=== PATIENT | female | born 1985 | race Caucasian/White ===

== ENCOUNTER 2016-10-01 03:45 | Inpatient (IN) | payer OTHER ==
[~2016-10-01] VITALS: Ht 175.3 cm; Wt 65.9 kg
[2016-10-01] MEDS ORDERED: LIDOCAINE 1% VIAL ONE ×2 (03:54→05:23)
[2016-10-01] MEDS ORDERED: MORPHINE SULFATE IV STA (04:34)
[2016-10-01] MEDS ORDERED: VANCOMYCIN 1,000 MG in NS 100ML 100 ML IV STA (04:34)
[2016-10-01] MEDS ORDERED: ZOSYN 3.375 GRAM VIAL 3.375 GM in NS 100ML 100 ML IV STA (04:34)
[2016-10-01] MEDS ORDERED: NS IV STA (04:34)
--- NOTE | 2016-10-01 04:48 | ER.PDOC ---
General Chief Complaint: Skin Rash/Abscess Stated Complaint: INSECT BITE/ABSCESS Time seen by MD: 02:38 Source: patient Exam Limitations: no limitations History of Present Illness Initial Comments Abscess left upper extremity for 3 days Severity: moderate Location: LUE Quality: painful Exposure: other (insect bite) Prior symptoms/Treatment: Similar symptoms previous, Treated by Doctor Allergies: Coded Allergies: ibuprofen (Verified Allergy, Unknown, 10/01/16) ketorolac (Verified Allergy, Unknown, 10/01/16) Past Medical History Medical History: no pertinent history Surgical History: , tubal Social History Smoking: less than 1 pack/day Alcohol Use: none Drug Use: none Constitutional: no symptoms reported, chills, fever Respiratory: no symptoms reported Cardiovascular: no symptoms reported Gastrointestinal: no symptoms reported Skin: see HPI All Other Systems: Reviewed and Negative Physical Exam General Appearance: alert, no distress Skin: abscess, tender indurated area, pointing, fluctuant, with erythema Location: LLE (forearm and elbow) With: warmth, tenderness, swelling, inflammation EENT: eyes nml inspection, lips/gums nml, pharynx nml Neck: trachea midline, no swelling Respiratory: no resp. distress, breath sounds nml CVS: reg. rate & rhythm, heart sounds nml Abdomen: non-tender, no organomegaly NEURO/PSYCH: oriented x 3, CN's nml as tested, motor nml, sensation nml, mood/ affect nml Incision and Drainage Incision and Drainage : Site: left forearm Blade Size: 11 I & D Procedure: betadine prep, gauze wick placed, irrigated cavity w/saline , culture/gram stain Central Line Central Line : Central Line Lumen: double Central Line Procedure: betadine prep, sterile drapes applied, sterile dressing applied Central Line Postion: internal jugular (R) Anesthesia: Lidocaine Complications: none Central Line Post Position: good blood return, position confirmed w/ CXR EKG/XRAY/CT/US XRAY: chest (Nothing acute, central line in good position) Departure Time of Disposition: 04:29 Disposition: 09 ADMITTED INPATIENT Impression: Primary Impression: Abscess Additional Impression: Cellulitis Qualified Codes: L03.114 - Cellulitis of left upper limb Condition: Stable Referrals: PCP,UNKNOWN (PCP) PRIMARY CARE PROVIDER Comments Admitted to Dr. Jacqueline HEREDIA,STAR Lee MD October 01, 2016 04:48
--- NOTE | 2016-10-01 05:01 | NUR ---
iv attempt iv attempted x 4 by this RN unsuccessful , Dr Torres attemped EJ x 2 unsuccessful
--- NOTE | 2016-10-01 05:30 | NUR ---
central line right subclavian central started by Dr Power , consent signed captain room service
[2016-10-01 05:35] LABS: BASOPHIL % 0.4 % (0.0-0.2); EOSINOPHIL # 0.3 10^3/uL (0.0-0.2); EOSINOPHIL % 2.6 % (0.0-5.0); HEMATOCRIT 32.4 % (36.0-46.0); HEMOGLOBIN 10.8 g/dL (12.0-15.0); LYMPHOCYTES # 2.5 10^3/uL (1.0-4.8); LYMPHOCYTES % 23.1 % (24.0-44.0); MEAN CELL HGB 29.7 pg (26-34); MEAN CELL HGB CONCENTRATION 33.3 g/dL (33-37); MEAN PLATELET VOLUME 9.4 fL (7.8-11.0); MONOCYTES % 8.8 % (5.0-12.0); NEUTROPHIL # 7.1 10^3/uL (1.8-7.7); NEUTROPHILS % 64.9 % (41.0-85.0); RED CELL DISTRIBUTION WIDTH 13.4 % (11.5-14.5); WHITE BLOOD CELL 10.9 10^3/uL (4.5-11.0)
--- NOTE | 2016-10-01 05:45 | NUR ---
blood culture drawn
[2016-10-01 05:51] LABS: CALCIUM 8.8 mg/dL (8.4-10.5); CARBON DIOXIDE 24.3 mmol/L (20.0-32)
[2016-10-01] MEDS ORDERED: MORPHINE SULFATE ONE ×2 (06:02→10:01)
--- NOTE | 2016-10-01 06:04 | DIREP ---
PROCEDURE:CHEST X-RAY, AP PORTABLE COMPARISON:None. INDICATIONS:POST CENTRAL LINE FINDINGS: LUNGS/PLEURA:No significant pulmonary parenchymal abnormalities. No pneumothorax is identified. VASCULATURE:Normal. Unremarkable pulmonary vasculature. CARDIAC:Normal. No cardiac silhouette abnormality or cardiomegaly. MEDIASTINUM:Normal. No visible mass or adenopathy. BONES:Normal. No fracture or visible bony lesion. OTHER:A central venous catheter is in place from a right subclavian approach, with its tip in the SVC. CONCLUSION: No cardiopulmonary abnormality is identified. Dictated by: Richar Thomas MD on 10/01/2016 at 06:02 AM
--- NOTE | 2016-10-01 06:08 | NUR ---
Ct patient to CT via wheelchair
--- NOTE | 2016-10-01 06:13 | NUR ---
home meds patient takes no home medication
[2016-10-01] MEDS ORDERED: NS 1000ML 1,000 ML ONE (06:22)
[2016-10-01] MEDS ORDERED: VANCOMYCIN HCL 1 GM ONE (06:23)
[2016-10-01] MEDS ORDERED: NS 250ML 250 ML IV ONE (06:23)
[2016-10-01] MEDS ORDERED: BENADRYL IV STA ×2 (06:27→06:52)
--- NOTE | 2016-10-01 06:28 | NUR ---
JOYCE DOCTOR GIOVANNA ON THE PHONE WITH DOCTOR COOK, WILL ADMIT TO MED SURG.
[2016-10-01] MEDS ORDERED: NS IV SCH (06:30)
[2016-10-01] MEDS ORDERED: VANCOMYCIN 1,000 MG in NS 100ML 100 ML IV SCH (06:30)
[2016-10-01] MEDS: ZOSYN 3.375 GRAM VIAL 3.375 GM in NS 100ML 100 ML IV SCH ×3 (06:30→19:07)
[2016-10-01] MEDS ORDERED: BENADRYL ONE (06:34)
--- NOTE | 2016-10-01 06:34 | PRM.ACF1 ---
Date and Time Date and Time Time: :33 Admission Criteria Forms CELLULITIS Clinical Indications for Admission to Inpatient Care (Place 'X' for any and all applicable criteria): Admission is indicated for ANY ONE of the following(1)(2)(3)(4)(5): [ x]I. Limb-threatening infection [ ]II. High-risk comorbid condition as indicated by ANY ONE of the following: [ ]a) Uncontrolled diabetes (eg, HbA1c greater than 10% (0.1)) [ ]b) Cirrhosis [ ]c) Neutropenia [ ]d) Asplenia [ ]e) Immunosuppression [ ]f) Symptomatic heart failure [ ]III. Failure of outpatient therapy as indicated by ALL of the following: [ ]a) Progression or no improvement after adequate trial (minimum of 48 hours, with longer period for stable lower extremity infection) [ ]b) Adequate antibiotic regimen as indicated by use of ANY ONE of the following: [ ]i) First-generation cephalosporin (e.g., cephalexin) [ ]ii) Antistaphylococcal penicillin (e.g., dicloxacillin) [ ]iii) Penicillin-allergic patient regimen (clindamycin, extended-spectrum fluoroquinolone, or doxycycline) [ ]iv) Resistant organism (eg, methicillin-resistant Staphylococcus aureus) regimen (6) [ ]c) Outpatient intravenous therapy regimen is not appropriate due to ANY ONE of the following. (7)(8)(9)(10): [ ]i) It was tried and was not successful (eg, progression of infection). [ ]ii) It is not available or cannot be arranged in a clinically appropriate time frame (e.g., the next day). [ ]iii) Clinical presentation (eg, acuity of infection, rapidity of progression, confirmed or suspected bacteremia) is judged to require ALL of the following: [ ]1) Immediate initiation of intravenous therapy ( eg, cannot wait for next day) [ ]2) Intensity of patient monitoring and observation (eg, vital sign measurement, checks for infection progression) that cannot be provided at other than inpatient level of care [ ]IV. Mental status changes [ ]V. Bacteremia [ ]. Hemodynamic instability [ ]VII. Suspected necrotizing soft tissue infection (e.g., gas in tissue)(11)( 12) [ ]VIII. Orbital infection (13)(14) [ ]IX. Associated surgical procedure (e.g., abscess drainage, debridement) not amenable to outpatient, emergency department, or observation care [ ]X. Cutaneous gangrene [ ]XI. High fever (temperature greater than 39.5 degrees C (103.1 degrees F) (oral)) not responsive to outpatient, emergency department, or observation care therapy [ ]XIII. Inpatient admission required rather than observation care (Also use Cellulitis: Observation Care as appropriate) because of ANY ONE of the following : [ ]a) Periorbital or perineal infection that is severe or worsening [ ]b) Severe pain requiring acute inpatient management [ ]c) IV fluid to replace significant ongoing (e.g., for over 24 hours) losses (greater than 3L/m2 per day) [ ]d) Compartment syndrome monitoring (17) [ ]e) Strict or protective (eg, laminar flow) isolation [ ]f) Urgent debridement or skin grafting [ ]g) Bone or joint debridement [ ]h) Immediate inpatient surgery [ ]i) Other condition, treatment or monitoring requiring inpatient admission Extended stay beyond goal length of stay may be needed for (1)(18): [ ]a) Necrotizing soft tissue infection or fasciitis [ ]b) Gram-negative infection [ ]c) Methicillin-resistant Staphylococcal aureus (MRSA) infection [ ]d) Peripheral venous insufficiency with cellulitis [ ]e) Extensive edema [ ]f) Sepsis or continued Hemodynamic instability [ ]g) Continued high fever or mental status change [ ]h) Bacteremia [ ]i) Active serious comorbid conditions ( eg, heart failure, renal insufficiency) The original [facility] [employer] content created by [employer] [facility] has been revised. The portions of the content which have been revised are identified through the use of italic text or in bold, and [facility] has neither reviewed nor approved the modified material. All other unmodified content is copyright [facility] Please see references footnoted in the original [facility] [employer] edition 2016 STAR HEREDIA MD October 01, 2016 06:34
--- NOTE | 2016-10-01 06:39 | DIREP ---
PROCEDURE:CT UPPER EXTREMITY-LT W/O COMPARISON:None. INDICATIONS:Forearm pain and swelling TECHNIQUE:Axial sections through the left forearm were performed with sagittal and coronal reconstructions from source images. No contrast was administered. FINDINGS: BONES:No evidence of fracture. JOINTS:Normal SOFT TISSUES:There is a laceration seen involving the ulnar aspect with radiodense material seen within the laceration that measures 1.2 x 1.5 cm in cross-section. Moderate soft tissue stranding and skin thickening. OTHER:Negative. CONCLUSION: Laceration of the forearm with radiodense material seen within it that may represent packing. There is associated subcutaneous fat stranding and moderate skin thickening. No evidence of fracture or destructive changes in the bones. Dictated by: Richar Thomas MD on 10/01/2016 at 06:34 AM
[2016-10-01 08:08] VITALS: BP 118/74
[2016-10-01] MEDS: MORPHINE SULFATE IV PRN ×4 (10:06→20:00)
[2016-10-01] MEDS ORDERED: VANCOMYCIN HCL 1 GM in NS 250ML 250 ML IV SCH ×2 (10:30→18:00)
--- NOTE | 2016-10-01 10:30 | NUR ---
DISCHARGE PLAN CM VISITED WITH PATIENT CONCERNING DISCHARGE PLAN AND NEED. PATIENT STATED SHE LIVES @ HOME WITH HER SPOUSE, IS INDEPENDENT ON ADLS AND DENIES NEEDING FURTHER RESOURCES @ THIS TIME. PATIENT ALSO ASKED THAT CM NOT BOTHER HER AGAIN. CURRENT GOAL FOR PATIENT IS TO RETURN BACK HOME TO ROUTINE SELF CARE UPON DISCHARGE. MAGALY [facility] NOTIFIED OF PATIENTS INSURANCE BARRIER, NOT HAVING CURRENT HEALTH INSURANCE. NO FURTHER CM OR DISCHARGE NEEDS KNOWN @ THIS TIME.
--- NOTE | 2016-10-01 10:52 | NUR ---
status patient is leaving the floor to go smoke. stated she would sign out so she could have a cigarette.
--- NOTE | 2016-10-01 10:54 | NUR ---
status patient unhooked her own IV and left the floor
--- NOTE | 2016-10-01 11:38 | NUR ---
arrival patient back to floor with some company
[2016-10-01 11:49] VITALS: BP 115/71
--- NOTE | 2016-10-01 13:36 | PCM.HP ---
History of Present Illness Reason for Visit: abscess and cellulitis left upper extremity History of Present Illness 31-year-old lady with history of smoking and polysubstance abuse including recent IV meth. Abuse. patient presented to the emergency room with cellulitis and abscess formation in the left forearm at site of previous IV meth abuse, injection site the patient was subjected to incision and drainage by the ER physician, admitted to manage significant infection she is currently on vancomycin and Zosyn. Right subclavian TLC was placed successfully by ER physician patient was seen and examined, discussed drug abuse issues. Continue medical management Past Medical History Infectious Diseases: Other ( patient is unaware of any prior hip C or HIV. Multiple sexual partners) Ab: Cooperative/Pleasant Past Surgical History: No pertinent hx Past Social History Smoke: 1 pack per day Alcohol: social Drugs: Crystal meth (IV) Travel Hx EBOLA RISK:Travel to/contact w: No Is pt experiencing any Ebola s: No Review of Systems Eyes: No: Pain, Vision change, Conjunctivae inflammation, Eyelid inflammation, Other, Redness ENT: No: Ear pain, Ear discharge, Nose pain, Nose discharge, Nose congestion, Mouth pain, Mouth swelling, Throat pain, Throat swelling, Other Respiratory: Cough, No: Dry, Shortness of breath, SOB with excertion, Wheezing , Hemoptysis, Pleuritic Pain, Sputum, Wheezing, Other Cardiovascular: No: Chest Pain, Palpitations, Orthopnea, Paroxysmal Noc. Dyspnea, Edema, Lt Headedness, Other Gastrointestinal: No: Nausea, Vomiting, Abdominal Pain, Diarrhea, Constipation , Melena, Hematochezia, Other Musculoskeletal: shoulder pain, arm pain, hand pain Allergies: Coded Allergies: cephalexin (Verified Allergy, Intermediate, 10/01/16) ibuprofen (Verified Allergy, Unknown, 10/01/16) ketorolac (Verified Allergy, Unknown, 10/01/16) VTE VTE Risk Total Score: 1 VTE Risk Score VTE Risk: Score 0-1 = Low Risk (Aggressive mobilization; early ambulation; no VTE prophylaxis required) Score 2: Moderate Risk (Intermittent/Pneumatic Compression Device OR Lovenox/Heparin/Coumadin) Score 3-4: High Risk (Intermittent/Pneumatic Compression Device AND Lovenox/Heparin/Coumadin) Score > or =5: Highest Risk (Intermittent/Pneumatic Compression Device AND Lovenox/Heparin/Coumadin) VTE VTE Present on Admission: No Currently receiving anticoagul: No VTE Risk Total Score: 1 Exam Vital Signs Vital Signs Date Time Temp Pulse Resp B/P (MAP) Pulse Ox O2 Delivery O2 Flow Rate FiO2 10/01/16 11:49 98.1 75 18 115/71 (86) 99 Room Air General Appearance: Alert, Oriented X3, Cooperative HEENT: Atraumatic Respiratory: Clear to auscultation, Other ( right subclavian triple-lumen catheter) Cardiovascular: Regular rate, Other ( no murmurs or added sounds) Abdominal: Normal bowel sounds Extremities: No clubbing, Other ( dressing) Assessment/Plan Assessment/Plan Assessment/Plan - abscess formation with cellulitis, left upper extremity - polysubstance abuse, IV meth - CT scan finding of the upper extremity showing: Laceration of the forearm with radiodense material seen within it that may represent packing. There is associated subcutaneous fat stranding and moderate skin thickening. No evidence of fracture or destructive changes in the bones. Problems: Patient History: FH: heart disease 35 FATHER CRISTO COOK MD October 01, 2016 13:36
[2016-10-01] MEDS ORDERED: AMBIEN PO PRN (14:00)
[2016-10-01] MEDS: NS 1000ML 1,000 ML IV SCH (14:00)
--- NOTE | 2016-10-01 14:09 | NUR ---
I&D TOMORROW THIS NURSE PHONED MAYRA IN ADMISSIONS, I&D SCHEDULED FOR 0[address] MORNING WITH DR. BROCK.
--- NOTE | 2016-10-01 14:42 | NUR ---
scd placed patient on foot scd's
[2016-10-01] MEDS: LOVENOX SQ SCH (14:54)
--- NOTE | 2016-10-01 15:00 | NUR ---
leaving floor patient disconnected her IV and stormed to the elevators and stated she is going to meet a friend.
--- NOTE | 2016-10-01 15:10 | NUR ---
status talked with patient in parking lot and explained that she is at high risk for infection due to the central line. she stated she knows and that she just needed to leave for a minute cause her boyfriend was driving her crazy. patient agreed to come in and not leave again if we made her boyfriend leave. escorted patient back to room and cleaned central line ports with with chlorhexadine. patient promised she would not touch the iv anymore and that she would call for assistance.
[2016-10-01] MEDS ORDERED: NICOTINE 21MG PATCH TD ONE (15:37)
[2016-10-01 15:47] VITALS: BP 115/58
[2016-10-01] MEDS ORDERED: ATIVAN IV PRN (16:00)
--- NOTE | 2016-10-01 17:53 | NUR ---
bath covered patients central line lumens with tegaderm so patient could shower.
--- NOTE | 2016-10-01 19:00 | NUR ---
Report received, assumed care of pt.
[2016-10-01 19:14] VITALS: BP 130/51
--- NOTE | 2016-10-01 19:35 | NUR ---
Pt ambulating hallway at this time. Appears very anxious. States she is anxious. Refuses Ativan until she is ready for bed.
[2016-10-01] MEDS: PEPCID PO SCH (20:48)
[2016-10-01] MEDS: VANCOMYCIN HCL 1 GM in NS 250ML 250 ML IV SCH (20:49)
--- NOTE | 2016-10-01 21:45 | NUR ---
Pt continues to be very anxious, x`1 visitor arrived pts anxiety appeared to increase. Pt requesting to go out and smoke if she can cover up her central line ports. Pt informed that is not an option per doctors order. Pt informed that if she does she has to sign AMA papers. Pt states she understands this but doesnt understand why she can't go out for 5 minutes. Informed patient that her central line goes directly into her and there is reasonable concern that she could use her ports to inject meth into. Pt states she would never do this. Unable to reason with pt. Pt refuses nicotine patch at this time. States it's not the same. Tearful. Requesting AMA papers at this time.
--- NOTE | 2016-10-01 21:50 | NUR ---
Dr. Phillips notified of pt status and requests and potential that pt is going to leave AMA. No new orders received. Order to keep pt on unit remains in place.
--- NOTE | 2016-10-01 22:00 | NUR ---
Went in to speak with pt further about potential complications if she leaves AMA, both medically and financially. Pt appears tearful entire time during conversation. States she knows leaving AMA is a bad idea and states she doesnt want to, she just wants to smoke. Pt states the only reason she wants to smoke is because she is in alot of pain, uncontrolled with the morphine alone, and this is causing her anxiety. Pt states if she could have something else for pain then she wouldn't sign the AMA papers at this time.
--- NOTE | 2016-10-01 22:05 | NUR ---
After discussing with Dr. Phillips pt concerns. Order found from earlier today that pt can have 1 Elim 7.5 PRN for pain, offered to pt, pt accepted. Discussed with pt that she may need to alternate between both the Elim and the Morphine throughout the night to keep her pain under control Addendum: 10/02/16 at 0500 by Ann Wolfe RN - Med/central office worker Addendum: COMPUTER ERROR SUBMITTED BEFORE FINISHED TYPING After discussing with Dr. Phillips pt concerns, order found from earlier today that pt can have 1 Elim 7.5 PRN for pain, offered to pt, pt accepted. Discussed with pt that she may need to alternate between both the Elim and the Morphine throughout the night to keep her pain under control, pt verbalized understanding. Appears slightly less anxious at this time. Will check back with pt in 2 hours to see how her pain is then.
[2016-10-01] MEDS: NORCO 7.5MG PO PRN (22:10)
[2016-10-01 23:52] VITALS: BP 120/72
[2016-10-02] VITALS (9 sets, daily range): BP systolic 112–124; BP diastolic 66–79
--- NOTE | 2016-10-02 | NUR ---
Pt states her pain is a "6" on 0/10 pain scale, requests Morphine if available. Morphine 4mg given IVP as per PRN order. Pt states she is tired. Refuses Ambien at this time. States she "eats everything in sight" when she takes Ambien. Pt encouraged to rest. Visitors asked to leave. Pt requested privately that they not be allowed to spend the night. Informed visitors that they could not spend the night tonight with the pt. Both left agreeably. Pt appears calm at this time. No anxiety noted. Will continue to monitor closely.
[2016-10-02] MEDS: MORPHINE SULFATE IV PRN (00:17)
[2016-10-02] MEDS: ZOSYN 3.375 GRAM VIAL 3.375 GM in NS 100ML 100 ML IV SCH ×3 (00:17→14:17)
--- NOTE | 2016-10-02 02:40 | NUR ---
Pt resting without distress. Eyes closed. In bed. RR equal and nonlabored, WNL. Will continue to monitor.
[2016-10-02 05:36] LABS: BASOPHIL % 0.5 % (0.0-0.2); EOSINOPHIL # 0.3 10^3/uL (0.0-0.2); EOSINOPHIL % 4.7 % (0.0-5.0); HEMATOCRIT 31.2 % (36.0-46.0); LYMPHOCYTES % 33.6 % (24.0-44.0); MEAN CELL HGB 29.2 pg (26-34); MEAN CELL HGB CONCENTRATION 32.1 g/dL (33-37); MEAN PLATELET VOLUME 9.1 fL (7.8-11.0); MONOCYTES # 0.7 10^3/uL (0.3-0.8); MONOCYTES % 11.9 % (5.0-12.0); NEUTROPHIL # 2.9 10^3/uL (1.8-7.7); NEUTROPHILS % 49.3 % (41.0-85.0); RED CELL DISTRIBUTION WIDTH 13.7 % (11.5-14.5); WHITE BLOOD CELL 5.8 10^3/uL (4.5-11.0)
[2016-10-02 06:01] LABS: CALCIUM 7.9 mg/dL (8.4-10.5)
[2016-10-02] MEDS ORDERED: NORCO 7.5MG PO ONE ×2 (06:14→09:15)
[2016-10-02 06:15] LABS: CARBON DIOXIDE 29.6 mmol/L (20.0-32)
[2016-10-02] MEDS: NS 1000ML 1,000 ML IV SCH ×2 (06:16→10:00)
[2016-10-02] MEDS: NORCO 7.5MG PO PRN ×2 (06:17→09:19)
--- NOTE | 2016-10-02 07:00 | NUR ---
REPORT REPORT RECEIVED FROM Felix BROCK RN AND ASSUMED CARE OF PT
[2016-10-02] MEDS ORDERED: ZOFRAN ONE (07:05)
[2016-10-02] MEDS ORDERED: DECADRON ONE (07:05)
[2016-10-02] MEDS ORDERED: DIPRIVAN IV ONE (07:06)
[2016-10-02] MEDS ORDERED: VERSED ONE (07:06)
[2016-10-02] MEDS ORDERED: SUBLIMAZE ONE ×2 (07:07→09:14)
[2016-10-02] MEDS ORDERED: SENSORCAINE-MPF 0.5% VIAL ONE (07:16)
[2016-10-02] MEDS ORDERED: SODIUM CHLORIDE IR ONE (07:16)
[2016-10-02] MEDS: VANCOMYCIN HCL 1 GM in NS 250ML 250 ML IV SCH (07:29)
--- NOTE | 2016-10-02 07:30 | NUR ---
ASSESSMENT ASSESSMENT COMPLETE AT THIS TIME. PT LAYING DOWN IN BED. C/O PAIN TO LEFT ARM 12/24. OR CREW HERE TO TRANSPORT PT TO OR. LUNGS CTA. RESPIRATIONS EVEN AND NONLABORED. ABD SOFT AND NONDISTENDED. BOWEL SOUNDS ACTIVE X4. NO SWELLING NOTED TO BLE. SWELLING PRESENT TO LEFT ARM. ELEVATED IN BED. RADIAL AND PEDAL PULSES PRESENT AND WNL. ALL NEEDS MET. CALL LIGHT WITHIN REACH.
--- NOTE | 2016-10-02 07:35 | NUR ---
OFF UNIT PT OFF UNIT AT THIS TIME TO OR
[2016-10-02] MEDS ORDERED: NICOTINE 21MG PATCH TD SCH (09:00)
[2016-10-02] MEDS: PEPCID PO SCH (09:00)
[2016-10-02] MEDS ORDERED: SUBLIMAZE IV PRN ×2 (09:30)
[2016-10-02] MEDS ORDERED: DILAUDID IV PRN (09:30)
--- NOTE | 2016-10-02 11:30 | OPH ---
DATE OF SURGERY: PREOPERATIVE DIAGNOSES: 1. Abscess, left posterior arm. 2. Possible foreign body in the left posterior arm. POSTOPERATIVE DIAGNOSIS: Abscess, left posterior arm. PROCEDURES PERFORMED: 1. Completion I and D of left posterior arm. 2. Exploration of anterior left antecubital fossa. SURGEON: Bryan Wolfe DO COSMETIC SALES ADVISOR: OR staff. ANESTHESIA: General by Darius Lakhani CRNA plus local used on the field. SPECIMENS: None. ESTIMATED BLOOD LOSS: 15 mL. COUNTS: At the completion of the case, the counts were correct per OR staff. DESCRIPTION OF PROCEDURE: The patient is a 31-year-old female. She is noted on CT scan to have possible foreign body in the antecubital fossa of the left arm and there is associated abscess in the left arm posteriorly and subsequently informed consent was obtained, taken to the operative suite and placed in supine position. After time-out, general anesthesia was obtained and the left upper extremity was circumferentially prepped and draped. With fluoroscopy and ultrasound localization, a small foreign body was identified in the medial aspect of the left antecubital fossa. Attempts were made to dissect down and identify it after it was localized. However, the foreign material was noted to be mobile with tissues and unable to be isolated. After this was completed, the wound bed was irrigated and it was closed. Subcutaneous and deep tissues were loosely approximated with 3-0 Vicryls sutures. Dressing was applied and the patient was repositioned and the posterior arm was previously prepped and incision was extended and deep pockets of purulent fluid were drained. The wound is cleaned. Hemostasis was obtained by electrocautery and the wound was packed. Dressing was applied to both portions of the arm, circumferentially wrapped with Kerlix and Jaya bandage. Drapes removed. The patient tolerated these procedures well. There were no acute complications noted. Bryan Wolfe DO DR: SULEIMAN/ba JOB# [id number] CC: Racheal Bolton MD
--- NOTE | 2016-10-02 12:15 | NUR ---
BEHAVIOR PT DEMANDS CENTRAL LINE BE TAKEN OUT SO SHE CAN GET UP TO GO SMOKE. EXPLAINED SMOKING POLICY TO PT AND THAT ORDERS WERE RECEIVED THAT PT WAS NOT ALLOW TO LEAVE FLOOR. PT STATES "WHEN IT THE DOCTOR GOING TO COME UP" EXPLAINED TO PT THAT DR BROCK WOULD BE UP SHORTLY AFTER OFFICE HOURS WERE CLOSED. EXPLAINED TO PT THAT AMA PAPER WOULD HAVE TO BE SIGNED IF SHE LEFT THE FLOOR TO GO SMOKE. PT STATES "I'M NOT SIGNING SHIT AND YOU CAN TAKEN THIS LINE OUT NOW" PT CIGARETTES SITTING IN TRAY AT THIS TIME. S DEBI RN NOTIFIED OF BEHAVIOURS
--- NOTE | 2016-10-02 12:24 | NUR ---
DR. ANNETTA LITTLEJOHN NOTIFIED OF PTS DEMAND TO HAVE CENTRAL LINE OUT AND GO SMOKE. DR LITTLEJOHN STATES TO NOTIFY DR BROCK
--- NOTE | 2016-10-02 12:25 | NUR ---
DR. DELMY BROCK NOTIFIED OF PTS DEMAND TO HAVE CENTRAL LINE D/C. DR BROCK STATES HE WILL BE UP TO SEE PT SHORTLY
--- NOTE | 2016-10-02 12:27 | NUR ---
BEHAVIOR PT CALLED TO NURSES STATION CUSSING AT STAFF. DR BROCK HERE TO SEE PT AT THIS TIME
[2016-10-02] MEDS: LOVENOX SQ SCH (14:00)
[2016-10-02] MEDS ORDERED: CLIN300C91 PO (14:36)
[2016-10-02] MEDS ORDERED: ACET1TAB38 PO (14:36)
--- NOTE | 2016-10-02 15:04 | NUR ---
DISCHARGE D/C INSTRUCTIONS GIVEN AT THIS TIME. PT DENIES ANY QUESTIONS AT THIS TIME. CENTRAL LING D/C ASEPTIC TECHNIQUE. CATH TIP INTACT. PRESSURE APPLIED. 4X4 GUAZE PLACED AND TEGADERM COVERED. PT TOLERATED WELL.
--- NOTE | 2016-10-02 15:30 | NUR ---
OFF UNIT PT OFF UNIT AT THIS TIME IN STABLE CONDITION
--- NOTE | 2016-10-02 21:01 | CNH ---
DATE OF CONSULTATION: CHIEF COMPLAINT: Abscess, cellulitis, left upper extremity. HISTORY OF PRESENT ILLNESS: This is a 31-year-old female who reports to me she had onset of pain in her left arm approximately 4 days ago. She did have symptomatic fever and chills in the house. She denies any injury or history of trauma. She is noted to possibly have foreign body on CT exam. She has had an incision and drainage with packing placed by the Emergency Department. She has also had a central venous catheter placed in right subclavian vein. At the time of my assessment, she is alert and pleasant. She reports her arm is significantly painful. There is minimal improvement after I and D. At time of reassessment, it is noted that the erythema and swelling are improved; however, she reports the pain continues. PAST MEDICAL HISTORY: She reports hepatitis C. PAST SURGICAL HISTORY: Includes abscess, right axilla, , tubal ligation and tonsils as a child. She also has central line placement today. ALLERGIES: INCLUDE IV TORADOL AND IBUPROFEN THAT CAUSE DIFFICULTY BREATHING. SHE REPORTS AN ALLERGY TO KEFLEX A CHILD. SHE DOES NOT KNOW THE SYMPTOMS. OUTPATIENT MEDICATIONS: She denies. FAMILY HISTORY: Mother is living age 50. Father is living age 56 with known coronary artery disease. SOCIAL HISTORY: Positive for smoked tobacco for 18 years. She denies significant alcohol. She reports illicit drug use; however, she was clean for 4-1/2 years per her report and apparently a little more than a week ago, she had a relapse and used IV crystal meth. She reports she has improved since that time. She reports she had multiple attempts for IV use. REVIEW OF SYSTEMS: CONSTITUTIONAL: She did report fever and chills as described above. ENDOCRINE: She denies any thyroid disease or diabetes. CARDIOVASCULAR: She denies any chest pain, trouble breathing, dyspnea or cough. MUSCULOSKELETAL: She denies any acute complaints. NEUROLOGIC: No seizures or blackouts. PSYCHIATRIC: She does report she has significant anxiety, which causes some heart racing in the past. GENITOURINARY: She had no dysuria, frequency, or urgency. PHYSICAL EXAMINATION: VITAL SIGNS: Last temperature noted on the chart is 99.5, pulse 99, blood pressure 130/51, respiratory rate of 18 and O2 sat is 96% at the time of my examination. HEENT: Normocephalic, atraumatic. She has pink mucous membranes. NECK: Supple and soft. Trachea is midline. She has no JVD or thyromegaly. HEART: Has regular rate and rhythm. LUNGS: Clear to auscultation bilaterally. Right subclavian central venous catheter is intact. ABDOMEN: Bowel sounds are positive, soft, nontender. EXTREMITIES: Show positive radial pulse bilaterally. Positive dorsal pedal pulses. Left upper extremity has an open wound that is dressed. Dressing was pulled back. There was noted to be packing in the wound. SKIN AND INTEGUMENT: Warm and dry. LABORATORY STUDIES: On admission, WBC is 10.9, hemoglobin 10.8, platelet counts 462. Chemistry showed BUN of 5, creatinine 0.52. Her CRP is 1.49, AST is slightly elevated at 49. Coag shows PT of 10.4, PTT of 29.9. IMAGING STUDIES: Upper extremity CT shows laceration of the forearm with radiodense material seen that may represent packing. There is subcutaneous fat stranding, skin thickening, no evidence of structural changes in the bones. SURGICAL ASSESSMENT: 1. Left upper extremity abscess with associated cellulitis. 2. History of hepatitis C. 3. History of polysubstance abuse. PLAN: 1. The patient is seen and examined. Chart is reviewed and her CAT scan is reviewed. 2. We discussed with the patient the need to further evaluate her left arm and look for foreign material based on what is seen on the CAT scan. She expresses understanding. We will plan to do so in the operative suite with anesthesia being provided by the anesthesia service. Bryan Wolfe DO DR: SULEIMAN/ba JOB# [id number] CC: Matthew MONTERO
--- NOTE | 2016-10-02 22:11 | DSH ---
DATE OF DISCHARGE: 10/02/2016 ADMITTING DIAGNOSES: Left forearm cellulitis and abscess. DISCHARGE DIAGNOSES: Left forearm cellulitis and abscess status post I and D. HOSPITAL COURSE: The patient is a 31-year-old female who came in to the ER with a left forearm abscess and cellulitis. ER physician did an I and D, but she had significant amount of redness and pus. She was admitted and started on IV antibiotics. DO Aiden was consulted and he took her to the OR and finished up the I and D and packed it. Her white count is normal. She is afebrile. She is doing better. At this point, she wants to go home. We have set her up with outpatient wound care with physical therapy. I am going to send her home on clindamycin 3 times a day for 7 days. I have asked her to take a probiotic pill daily for the antibiotic associated diarrhea with clindamycin and I am giving her some Tylenol No. 4 as needed for pain. She is to follow up with DO Aiden next week and resume home diet and activity level. Racheal Bolton MD DR: FREDRICK/ba JOB# [id number]
== END 2016-10-02 15:30 | disposition home or self-care (01) | DRG 580 ==
LOC: ER 03:45 → MS 06:30
PROVIDERS: ADMIT Internal Medicine; ATTEND Pediatrics
PROC: 0JCK0ZZ Extirpation of Matter from Left Hand Subcutaneous Tissue and Fascia, Open Approach (ICD-10-PCS; 2016-10-02)
PROC: 0J9K0ZZ Drainage of Left Hand Subcutaneous Tissue and Fascia, Open Approach (ICD-10-PCS; principal; 2016-10-02 07:48)
DX: L03.114 Cellulitis of left upper limb (principal); L02.512 Cutaneous abscess of left hand; W57.XXXA Bitten or stung by nonvenomous insect and other nonvenomous arthropods, initial encounter; Y93.89 Activity, other specified; Y92.89 Other specified places as the place of occurrence of the external cause; Y99.8 Other external cause status; Z88.6 Allergy status to analgesic agent; F17.210 Nicotine dependence, cigarettes, uncomplicated; F19.10 Other psychoactive substance abuse, uncomplicated; Z82.49 Family history of ischemic heart disease and other diseases of the circulatory system; S51.819A Laceration without foreign body of unspecified forearm, initial encounter; Z86.19 Personal history of other infectious and parasitic diseases; Z98.51 Tubal ligation status; Z88.1 Allergy status to other antibiotic agents
CPT/HCPCS: 10060; 36415; 36556; 36600; 71010; 73200; 76000; 80048; 80053; 83605; 84703; 85025; 85610; 85730; 86140; 87040; 87070; 87077; 87186; 96365; 96375; 99285; J1100; J1200; J1650; J2001; J2060; J2250; J2270; J2405; J2543; J3010; J3490; J7030; J7050; C1751; J3370

== ENCOUNTER 2016-10-04 17:48 | Emergency (ER) | payer OTHER ==
[~2016-10-04] VITALS: Ht 175.3 cm; Wt 72.6 kg
[~2016-10-04 17:48] MED LIST: ACET1TAB38 PO; CLIN300C91 PO
--- NOTE | 2016-10-04 19:09 | ER.PDOC ---
General Chief Complaint: Nausea,Vomiting,Diarrhea Stated Complaint: FEVER, NAUSEA Time seen by MD: 18:57 Source: patient Exam Limitations: no limitations History of Present Illness Initial Comments Pt was discharged on Wednesday after surgery for cellulitis, could not fill the antibiotic, continued to have fever, now has developed cough and nausea, plus some blotching areas throughout the body, feels tired, weak Timing/Duration: 1 week Location: [facility] Allergies: Coded Allergies: cephalexin (Verified Allergy, Intermediate, 10/01/16) ibuprofen (Verified Allergy, Unknown, 10/01/16) ketorolac (Verified Allergy, Unknown, 10/01/16) Home Meds Active Scripts Acetaminophen With Codeine (TYLENOL-COD #4 TABLET) 1 Each Tablet, 1 EACH PO TID Y for PAIN, #30 TAB 0 Refills Prov:ANA LUISA LITTLEJOHN MD 10/02/16 Clindamycin Hcl (CLINDAMYCIN HCL) 300 Mg Capsule, 300 MG PO TID, #21 CAPSULE 0 Refills Prov:ANA LUISA LITTLEJOHN MD 10/02/16 Past Medical History Medical History: other Surgical History: , tubal LMP (females 10-50): this week Social History Smoking: less than 1 pack/day Alcohol Use: none Drug Use: Meth Constitutional: see HPI EENTM: see HPI Respiratory: see HPI Cardiovascular: see HPI Gastrointestinal: see HPI Genitourinary: see HPI Musculoskeletal: see HPI Skin: see HPI Psychiatric/Neurological: see HPI Endocrine: see HPI Hematologic/Lymphatic: see HPI Physical Exam General Appearance: alert, no distress Skin: tender indurated area (operated area on left forearm, wound looks swollen and shows some purulence) Extremities: non-tender, nml ROM, no edema EENT: eyes nml inspection, lips/gums nml, pharynx nml Neck: trachea midline, no swelling Respiratory: rhonchi CVS: reg. rate & rhythm, heart sounds nml Abdomen: other (tender epigastrium) Rectal: non-tender NEURO/PSYCH: oriented x 3, CN's nml as tested, motor nml, sensation nml, mood/ affect nml EKG/XRAY/CT/US XRAY: chest XRAY Comments: Neg Departure Time of Disposition: 20:08 Disposition: 01 HOME, SELF-CARE Impression: Primary Impression: Cellulitis Additional Impression: Cough Condition: Stable Patient Instructions: Cellulitis Referrals: PCP,UNKNOWN (PCP) PRIMARY CARE PROVIDER VIKKI JIN MD October 04, 2016 19:09
[2016-10-04 19:29] LABS: BASOPHIL % 0.7 % (0.0-0.2); EOSINOPHIL # 0.1 10^3/uL (0.0-0.2); EOSINOPHIL % 1.5 % (0.0-5.0); LYMPHOCYTES # 1.7 10^3/uL (1.0-4.8); LYMPHOCYTES % 28.8 % (24.0-44.0); MEAN CELL HGB 29.6 pg (26-34); MEAN CELL HGB CONCENTRATION 33.3 g/dL (33-37); MEAN CORP VOLUME 88.8 fL (78-100); MEAN PLATELET VOLUME 8.9 fL (7.8-11.0); MONOCYTES # 0.9 10^3/uL (0.3-0.8); MONOCYTES % 15.5 % (5.0-12.0); NEUTROPHIL # 3.2 10^3/uL (1.8-7.7); NEUTROPHILS % 53.3 % (41.0-85.0); RED CELL DISTRIBUTION WIDTH 13.3 % (11.5-14.5)
[2016-10-04 19:31] LABS: ABG PCO2 32.7 mmHg (35.0-45.0); ABG PH 7.482 (7.350-7.450); BE(B) 0.9 mmol/L (-2.0-2.0); HCO3act 23.9 mmol/L (22.0-26.0); pO2 82.7 mmHg (75.0-100.0)
[2016-10-04] MEDS ORDERED: ZOFRAN ODT SL STA (19:36)
--- NOTE | 2016-10-04 19:39 | DIREP ---
PROCEDURE:CHEST 1 VIEW COMPARISON:None. INDICATIONS:Fever, cough FINDINGS: LUNGS/PLEURA:No significant pulmonary parenchymal abnormalities. No effusions. VASCULATURE:Normal. Unremarkable pulmonary vasculature. CARDIAC:Normal. No cardiac silhouette abnormality or cardiomegaly. MEDIASTINUM:Normal. No visible mass or adenopathy. BONES:Normal. No fracture or visible bony lesion. OTHER:Negative. CONCLUSION: 1. Negative chest radiograph. Dictated by: Elías Biswas M.D. on 10/04/2016 at 07:38 PM
[2016-10-04 19:45] LABS: CALCIUM 8.3 mg/dL (8.4-10.5); CARBON DIOXIDE 27.2 mmol/L (20.0-32)
[2016-10-04] MEDS ORDERED: CLEOCIN IM ONE (20:00)
[2016-10-04] MEDS ORDERED: CLEOCIN ONE (20:51)
[2016-10-04] MEDS ORDERED: ZOFRAN ODT ONE (20:51)
[2016-10-04 21:23] VITALS: BP 147/89
== END 2016-10-04 21:25 | disposition home or self-care (01) ==
LOC: ER 17:48
DX: L76.82 Other postprocedural complications of skin and subcutaneous tissue (principal); L03.114 Cellulitis of left upper limb; R05 Cough; R11.0 Nausea; R53.1 Weakness; F17.200 Nicotine dependence, unspecified, uncomplicated; Z88.1 Allergy status to other antibiotic agents; Z88.8 Allergy status to other drugs, medicaments and biological substances
CPT/HCPCS: 36415; 36600; 71010; 80053; 82803; 85025; 96372; 99285; J3490; Q0162; 99284